=== PATIENT | male | born 1980 | race Caucasian/White ===

== ENCOUNTER 2018-09-20 18:07 | Emergency (ER) | payer BC ==
[2007-07-30 01:55] VITALS: BP 119/73
[~2018-09-20] VITALS: Ht 182.9 cm; Wt 100.0 kg
[~2018-09-20 18:07] MED LIST: AMOXICILLIN 8751 TAB PO; CAMPRAL333 MG PO; CELEXA 20MG20 MG/TAB PO; NO HOME MEDICATIONS; NORCO 325 MG-51 TAB PO; PAXIL PO; PRIL40 PO; TRAZODONE HCL100 MG PO; acid reflux med
[2018-09-20 18:13] VITALS: TEMP 97.7
[2018-09-20 19:20] VITALS: BP 135/89; PULSE 81
== END 2018-09-20 19:24 | disposition home or self-care (01) ==
LOC: COL.ER 18:07
DX: J95.830 Postprocedural hemorrhage of a respiratory system organ or structure following a respiratory system procedure (principal); F32.9 Major depressive disorder, single episode, unspecified; K21.9 Gastro-esophageal reflux disease without esophagitis

== ENCOUNTER 2020-06-22 10:14 | Outpatient (CLI) | payer BC ==
[~2020-06-22] VITALS: Ht 182.9 cm; Wt 107.0 kg
[2020-06-22 10:26] VITALS: BP 126/85; PULSE 82; TEMP 97.8
[2020-06-22] MEDS ORDERED: VISTARIL 2525 MG/CAP PO (10:29)
[2020-06-22 13:12] LABS: ALBUMIN 3.4 gm/dL (3.5-5.0); BILIRUBIN,TOTAL 0.5 mg/dL (0.0-1.0); CALCIUM 7.8 mg/dL (8.4-10.2); CREATININE, serum 0.93 (0.66-1.25); POTASSIUM 4.3 mmol/L (3.4-5.0); TOTAL PROTEIN 5.8 gm/dL (6.4-8.2)
--- NOTE | 2020-06-22 13:55 | NUR ---
Notification made to VINI Cadet at Dr. Michael's office of critical values on chemistry panel. RN states she will relay this to .
== END 2020-06-22 14:22 | disposition home or self-care (01) ==
LOC: EUO 10:14
PROVIDERS: Family Medicine
DX: R74.8 Abnormal levels of other serum enzymes (principal)
CPT/HCPCS: J7030

== ENCOUNTER 2020-06-22 15:41 | Inpatient (IN) | payer BC ==
[~2020-06-22] VITALS: Ht 182.9 cm; Wt 105.7 kg
[~2020-06-22 15:41] MED LIST changes: +VISTARIL 2525 MG/CAP PO
[2020-06-22 18:00] VITALS: BP 135/81; PULSE 85; TEMP 97.8
[2020-06-22 18:58] VITALS: BP 136/75; PULSE 79; TEMP 98.7
--- NOTE | 2020-06-22 19:17 | NUR ---
Pt to floor this afternoon, I.V. initiated in right hand, Pt tolerated well. Initial assessments complete.
--- NOTE | 2020-06-22 19:17 | NUR ---
Report receieved from VINI Bui. Pt resting in bed, at bedside. Denies needs at this time.
--- NOTE | 2020-06-22 21:58 | NUR ---
Assessment completed. Pt lying in bed watching tv. Denies pain but reports a tingling sensation throughout body. States he experiences this sensation when feeling anxious. Reports feeling anxious about going to bed, states this is baseline. Describes it as a "feeling of impending doom" when trying to fall asleep. Scheduled hydroxyzine administered. Heart rate and rhythm regular, lung sounds clear, breathing unlabored. IV to right hand intact, NS running at 250 ml/hr per orders. Pt denies other needs at this time.
[2020-06-22 23:57] VITALS: BP 147/81; PULSE 76; TEMP 98.2
[2020-06-23 02:22] LABS: PH 7 (5-8); SQUAMOUS EPITHELIAL None Seen /hpf; URINE APPEARANCE Clear; URINE BACTERIA None Seen /hpf; URINE BILIRUBIN Negative (NEGATIVE); URINE BLOOD Negative (NEGATIVE); URINE COLOR Straw; URINE GLUCOSE Negative (NEGATIVE); URINE KETONE Negative (NEGATIVE); URINE LEUKOCYTE ESTERASE Negative (NEGATIVE); URINE NITRATE Negative (NEGATIVE); URINE PROTEIN(semi-quant) Negative (NEGATIVE); URINE RBC None Seen /hpf; URINE UROBILINOGEN Negative (NEGATIVE)
[2020-06-23 02:55] LABS: COLLECTION METHOD CLEAN CATCH
[2020-06-23 03:39] VITALS: BP 137/82; PULSE 83; TEMP 97.7
[2020-06-23 07:01] LABS: BASO # 0.1 (0.0-0.2); BASO % 0.9 % (0.0-2.0); EOS # 0.1 (0.0-0.7); GRAN # 3.7 (1.4-6.5); GRAN % 56.6 % (42.2-75.2); HEMATOCRIT 41.8 % (42.0-52.0); HEMOGLOBIN 14.3 g/dl (13.5-18.0); LYMPH # 2.1 (1.2-3.4); LYMPH % 31.8 % (20.0-51.0); MEAN CELL VOLUME 87 fl (80.0-100.0); MEAN CORPUSCULAR HEMOGLOBIN 30 pg (27.0-31.0); MEAN CORPUSCULAR HGB CONC 34 g/dl (33.0-37.0); MEAN PLATELET VOLUME 10.3 fl (7.4-10.4); MONO # 0.6 (0.1-0.6); MONO % 8.5 % (1.7-9.3); PLATELET COUNT 251 K/mm3 (130-400); RED BLOOD COUNT 4.83 M/mm3 (4.20-5.60); REDCELL DISTRIBUTION WIDTH-CV 12.6 % (11.5-14.5)
[2020-06-23 07:21] LABS: ALBUMIN 3.8 gm/dL (3.5-5.0); BILIRUBIN,TOTAL 0.6 mg/dL (0.0-1.0); CALCIUM 8.8 mg/dL (8.4-10.2); CREATININE, serum 0.91 (0.66-1.25); MAGNESIUM 1.9 mg/dL (1.6-2.3); POTASSIUM 4.2 mmol/L (3.4-5.0); TOTAL PROTEIN 6.4 gm/dL (6.4-8.2)
[2020-06-23 07:37] VITALS: BP 142/86; PULSE 94; TEMP 97.8
--- NOTE | 2020-06-23 09:32 | NUR ---
Pt awake and alert upon entry, talkative, no C/O pain at this time, shift assessments complete, left Pt call light in reach, bed in lowest position.
[2020-06-23 11:44] VITALS: BP 142/85; PULSE 86; TEMP 97.2
--- NOTE | 2020-06-23 12:26 | NUR ---
stopped by and visited with patient. Nothing else needed at this time.
--- NOTE | 2020-06-23 12:49 | NUR ---
Plan: To return home in [place] with Sonali . Assess: Patient reports that his PCP is Dr. Michael. Patient reports that his emr contact is his . Patient shares that he uses [facility] for [facility]. Patient share that he does not require any DME use. Patient will transport self. No DPOA. Action: SW could not identify any additional concerns.
[2020-06-23 15:46] VITALS: BP 145/85; PULSE 94; TEMP 97.3
[2020-06-23 17:40] LABS: ALBUMIN 4.2 gm/dL (3.5-5.0); BILIRUBIN,TOTAL 0.5 mg/dL (0.0-1.0); CALCIUM 9.1 mg/dL (8.4-10.2); CREATININE, serum 0.89 (0.66-1.25); POTASSIUM 3.8 mmol/L (3.4-5.0)
--- NOTE | 2020-06-23 18:33 | NUR ---
Pt resting in the room, no C/O pain throughout the day. VS have remained stable.
[2020-06-23 19:56] VITALS: BP 150/87; PULSE 88; TEMP 98.4
--- NOTE | 2020-06-23 22:02 | NUR ---
#16 FR. HARRELL INDWELLING CATHETER INSERTED PER ORDER. GOOD RETURN UPON INSERTION.
[2020-06-23 23:13] VITALS: BP 137/84; PULSE 87; TEMP 97.8
[2020-06-24 03:53] VITALS: BP 134/83; PULSE 78; TEMP 97.7
--- NOTE | 2020-06-24 06:32 | NUR ---
PT'S ANXIETY DOING MUCH BETTER THIS MORNING.
[2020-06-24 06:52] LABS: ALBUMIN 3.6 gm/dL (3.5-5.0); BILIRUBIN,TOTAL 0.7 mg/dL (0.0-1.0); CALCIUM 8.7 mg/dL (8.4-10.2); CREATININE, serum 0.86 (0.66-1.25); MAGNESIUM 1.9 mg/dL (1.6-2.3); POTASSIUM 3.9 mmol/L (3.4-5.0); TOTAL PROTEIN 6.2 gm/dL (6.4-8.2)
[2020-06-24 07:35] VITALS: BP 146/92; PULSE 101; TEMP 97.6
--- NOTE | 2020-06-24 07:40 | NUR ---
Pt awake and alert upon entry, talkative, no C/O pain at this time, wood catheter draining pale yellow urine, shift assessments complete, left Pt call light in reach, bed in lowest position.
[2020-06-24 11:48] VITALS: BP 148/88; PULSE 73; TEMP 97.8
[2020-06-24 15:25] VITALS: BP 135/84; PULSE 81; TEMP 97.4
--- NOTE | 2020-06-24 19:00 | NUR ---
Pt resting in the room, no C/O pain throughout the day. VS have remained stable. Baker draining pale yellow, clear.
[2020-06-24 20:26] VITALS: BP 150/88; PULSE 71; TEMP 98.3
--- NOTE | 2020-06-24 22:03 | NUR ---
Pt resting in bed, alert and oriented. gave medications per MAR. pt denies pain, shortness of breath or chest pain. no other needs at this time, will continue to monitor.
[2020-06-25 00:07] VITALS: BP 144/86; PULSE 68; TEMP 98
[2020-06-25 03:49] VITALS: BP 153/94; PULSE 71; TEMP 97.6
--- NOTE | 2020-06-25 05:00 | NUR ---
pt sleeping most of the night. administered fluids per MAR and emptied folley throughout the night, pt has no further needs at this time.
[2020-06-25 07:51] LABS: ALBUMIN 3.7 gm/dL (3.5-5.0); BILIRUBIN,TOTAL 0.7 mg/dL (0.0-1.0); CALCIUM 8.8 mg/dL (8.4-10.2); CREATININE, serum 0.98 (0.66-1.25); POTASSIUM 3.8 mmol/L (3.4-5.0); TOTAL PROTEIN 6.3 gm/dL (6.4-8.2)
--- NOTE | 2020-06-25 08:53 | NUR ---
Office Support Associate attended clinical rounds with the team. Patient to discharge home today. No needs identified at this time.
--- NOTE | 2020-06-25 09:20 | NUR ---
Initial visit; Patient thanked Mental Telepathist for stopping though declined spiritual care.
--- NOTE | 2020-06-25 10:09 | NUR ---
Pt awake and alert upon entry, no C/O pain at this time, talkative, shift assessments complete, left Pt call light in reach, bed in lowest position.
--- NOTE | 2020-06-25 11:00 | NUR ---
Pt discharged to home, discussed discharge packet with Pt, escorted Pt to entrance, Pt left with family via private transportation.
== END 2020-06-25 11:00 | disposition home or self-care (01) | DRG 558 ==
LOC: MEDICAL 15:41
PROVIDERS: Physician Assistant; ADMIT Internal Medicine
DX: M62.82 Rhabdomyolysis (principal); E78.5 Hyperlipidemia, unspecified; K21.9 Gastro-esophageal reflux disease without esophagitis; F41.9 Anxiety disorder, unspecified; R79.89 Other specified abnormal findings of blood chemistry; Z87.891 Personal history of nicotine dependence
CPT/HCPCS: 99222-AI; 99231-AI; 99232-AI; 99239; J1650; J7030

== ENCOUNTER 2022-12-23 13:33 | Emergency (ER) | payer BC ==
[~2022-12-23] VITALS: Ht 182.9 cm; Wt 104.5 kg
[2022-12-23 13:41] VITALS: TEMP 98.3
[2022-12-23] MEDS ORDERED: CEPHALEXIN500 M1 PO (14:01)
[2022-12-23 14:35] VITALS: BP 131/91; PULSE 71
== END 2022-12-23 14:41 | disposition home or self-care (01) ==
LOC: COL.ER 13:33
DX: S61.201A Unspecified open wound of left index finger without damage to nail, initial encounter (principal); W27.0XXA Contact with workbench tool, initial encounter